=== PATIENT | male | born 1995 | race Two or more races ===

== ENCOUNTER 2024-01-01 20:39 | Emergency (ER) | payer SELFPAY ==
[~2024-01-01] VITALS: Ht 188 cm; Wt 88.4 kg
[2024-01-01] MEDS: ALBUTEROL SULF 2.5 MG/0.5ML(0.5%) NEB SOLN NEB ONE (21:17)
[2024-01-01] MEDS: IPRATROPIUM BROM 0.5 MG/2.5ML INH SOL NEB ONE (21:17)
[2024-01-01 21:23] LABS: Basophils # (auto) 0 10 ^3/uL (0-0.2); Basophils % (auto) 0.5 % (0.0-2.0); Eosinophils # (auto) 0.6 10 ^3/uL (0-0.8); Eosinophils % (auto) 10.7 % (0.0-7.0); Hematocrit 46.2 % (41.0-53.0); Hemoglobin 15.3 g/dL (13.5-17.5); Lymphocytes # (auto) 2.1 10 ^3/uL (0.4-5.4); Lymphocytes % (auto) 35.4 % (10.0-50.0); Mean Corpuscular Hemoglobin 29.1 pg (28.0-32.0); Mean Corpuscular Hgb Conc. 33.1 g/dL (32.0-36.0); Monocytes # (auto) 0.4 10 ^3/uL (0-1.3); Monocytes % (auto) 7.3 % (0.0-12.0); Neutrophils # (auto) 2.7 10 ^3/uL (1.6-8.6); Neutrophils % (auto) 46.1 % (37.0-80.0); Nucleated Red Blood Cells % 0.1 %; Red Blood Cells 5.25 10^6/uL (4.5-5.90); Red Cell Distribution Width 13.3 % (11.8-14.3); White Blood Cell 5.9 10^3/uL (4.4-10.8)
[2024-01-01 21:26] LABS: Chloride 108 mmol/L (98-107); Potassium 3.7 mmol/L (3.5-5.1); Sodium 141 mmol/L (136-145)
[2024-01-01 21:27] LABS: Anion Gap 5 (5-15); Carbon Dioxide 28 mmol/L (20-30)
[2024-01-01 21:28] LABS: Calcium 9.9 mg/dL (8.7-10.4)
[2024-01-01 21:33] LABS: BUN/Creatinine Ratio 4.7 (10.0-20.0); Blood Urea Nitrogen 5 mg/dL (9-23); Glucose 100 mg/dL (74-106); Lipase 31 U/L (12-53)
[2024-01-01] MEDS: ONDANSETRON ODT 4 MG TAB PO ONE (21:36)
[2024-01-01] MEDS: LIDOCAINE 1% HCL (LOCAL ANESTH.) INJ 20ML MDV ONE (21:36)
[2024-01-01] MEDS: DexAMETHasone SOD PHOS 10MG/1ML VIAL INJ IM ONE (21:36)
[2024-01-01] MEDS: AZITHROMYCIN 250 MG TAB PO ONE (21:36)
[2024-01-01] MEDS: cefTRIAXone SODIUM 250 MG VL IM ONE (21:36)
[2024-01-01 21:47] VITALS: BP 139/66; PULSE 83; RESP 18; TEMP 98.4; O2SAT 99
[2024-01-01 22:02] LABS: Urine Bacteria None Seen /hpf (None Seen)
[2024-01-01 22:18] LABS: Urine Blood Negative /uL (Negative); Urine Clarity Clear (Clear); Urine Color Light-Yellow (Yellow); Urine Protein, UAD Negative (Negative); Urine Specific Gravity 1.022 (1.001-1.035); Urine Urobilinogen Normal (Negative); Urine WBC 2 /hpf (0 - 3)
== END 2024-01-02 00:42 | disposition left against medical advice (07) ==
LOC: ER 20:39
DX: J45.901 Unspecified asthma with (acute) exacerbation (principal); Z20.2 Contact with and (suspected) exposure to infections with a predominantly sexual mode of transmission
CPT/HCPCS: 36415; 80048; 81001; 83690; 85025; 87491; 87591; 94640; 96372; 99284; J0696; J1100; J2001; J7644; Q0162